=== PATIENT | female | born 1950 | race African-American/Black ===

== ENCOUNTER 2020-04-17 14:21 | Inpatient (IN) | payer MEDICARE, MEDICAID ==
[~2020-04-17] VITALS: Ht 162.6 cm; Wt 120.2 kg
[2020-04-17 16:19] LABS: BASOPHILS % 0.3 % (0.0-2.0); EOSINOPHILS % 1.3 % (0.0-5.0); HEMATOCRIT. 36.2 % (36.0-48.0); HEMOGLOBIN. 11.6 g/dL (12.0-16.0); MEAN CORPUSCULAR VOLUME 87.3 fL (81.0-99.0); MEAN PLATELET VOLUME 9.1 fl (7.4-10.4); MONOCYTES % 9.1 % (2.0-8.0); NEUTROPHILS % 74.3 % (40.0-76.0); PLATELET 195 x1000/uL (130-400); RED BLOOD CELL COUNT 4.15 mill/uL (4.2-5.4); RED CELL DISTRIBUTION WIDTH 16.2 % (11.6-14.6)
[2020-04-17 16:28] LABS: CHLORIDE 108 mEq/L (98-107)
[2020-04-17 16:31] LABS: INR 1.1; PROTHROMBIN TIME 11.1 sec (9.6-11.0)
[2020-04-17] MEDS ORDERED: ASPIRIN 325MG EC TABLET PO ONE (17:00)
[2020-04-17] MEDS ORDERED: FUROSEMIDE 20MG/2ML VIAL IVP ONE (17:00)
[2020-04-17] MEDS ORDERED: SODIUM CHLORIDE 0.9% 250 ML IV ONE (17:51)
[2020-04-17] MEDS ORDERED: ASPIRIN 300MG SUPP PR ONE (18:00)
[2020-04-17] MEDS ORDERED: ONDANSETRON HCL 4MG/2ML INJ IV PRN (19:30)
[2020-04-17] MEDS ORDERED: CLONIDINE 0.1MG TABLET PO PRN (19:30)
[2020-04-17] MEDS ORDERED: ACETAMINOPHEN 325MG TABLET PO PRN (19:30)
[2020-04-17] MEDS ORDERED: MORPHINE SULFATE 2 MG/ML CPJ (NOT FOR IM USE) IV PRN (19:30)
[2020-04-17 20:00] VITALS: BP 108/69
[2020-04-17] MEDS ORDERED: AZITHROMYCIN 500 MG in DEXT 5% WATER 250 ML IV SCH ×2 (20:00→23:00)
[2020-04-17] MEDS ORDERED: ENOXAPARIN 30MG/0.3ML SYR SUBCUT SCH (20:00)
[2020-04-17 21:30] VITALS: BP 108/69
[2020-04-17 21:45] VITALS: BP 108/69
[2020-04-17] MEDS: SODIUM CHLORIDE 0.45% 1,000 ML IV SCH (22:53)
[2020-04-18] VITALS (8 sets, daily range): BP systolic 91–114; BP diastolic 56–68
[2020-04-18] MEDS ORDERED: ALLO300T2 PO (04:47)
[2020-04-18] MEDS ORDERED: AMLO5TAB88 PO (04:47)
[2020-04-18] MEDS ORDERED: METF-414 PO (04:47)
[2020-04-18] MEDS ORDERED: GABA-533 PO (04:47)
[2020-04-18] MEDS ORDERED: ATOR40TA70 PO (04:47)
[2020-04-18] MEDS ORDERED: UMEC62.5 PO (04:47)
[2020-04-18] MEDS ORDERED: OMEP40CA12 PO (04:47)
[2020-04-18] MEDS ORDERED: LOSA100T32 PO (04:47)
[2020-04-18] MEDS ORDERED: DOCU250C87 PO (04:47)
[2020-04-18 06:26] LABS: BASOPHILS % 0.2 % (0.0-2.0); EOSINOPHILS % 1.4 % (0.0-5.0); HEMATOCRIT. 35.8 % (36.0-48.0); HEMOGLOBIN. 11.4 g/dL (12.0-16.0); LYMPHOCYTES % 16.7 % (20.0-50.0); MEAN CORPUSCULAR HEMOGLOBIN 28.2 pg (28.0-32.0); MEAN CORPUSCULAR VOLUME 88.9 fL (81.0-99.0); MEAN PLATELET VOLUME 8.7 fl (7.4-10.4); MONOCYTES % 10.7 % (2.0-8.0); PLATELET 181 x1000/uL (130-400); RED BLOOD CELL COUNT 4.03 mill/uL (4.2-5.4); RED CELL DISTRIBUTION WIDTH 16.5 % (11.6-14.6)
[2020-04-18 06:28] LABS: CHLORIDE 108 mEq/L (98-107)
[2020-04-18 06:37] LABS: LDL CHOLESTEROL 116 mg/dL (5-100)
[2020-04-18 06:38] LABS: HDL CHOLESTEROL 25 mg/dL (40-59)
[2020-04-18] MEDS: SODIUM CHLORIDE 0.45% 1,000 ML IV SCH (07:40)
[2020-04-18] MEDS ORDERED: LIDOCAINE HCL/PF 1% 2ML VIAL ONE (09:45)
[2020-04-18] MEDS ORDERED: FUROSEMIDE 40MG/4ML VIAL IVP SCH (12:45)
[2020-04-18] MEDS ORDERED: ENOXAPARIN 120MG/0.8ML SYR SUBCUT SCH (14:00)
[2020-04-18 14:09] LABS: BG BASE EXCESS -5.1 mmol/L (-2.0-2.0); BG CARBOXYHEMOGLOBIN 0.5 % (0.5-1.5); BG DEOXYHEMOGLOBIN 7.4 % (0.0-5.0); BG HCO3 ACT 24.5 mmol/L (22.0-26.0); BG METHEMOGLOBIN 0.2 % (0.0-1.5); BG OXYGEN SATURATION 92.5 % (92.0-98.5); BG OXYHEMOGLOBIN 91.9 % (94.0-97.0); BG PCO2 69.4 mmHg (35.0-45.0); BG PH 7.166 (7.350-7.450); BG PO2 80.8 mmHg (75.0-100.0); BG SAMPLE SITE RIGHT RADIAL; BG VENT MODE NASAL CANNULA
[2020-04-18] MEDS ORDERED: IOHEXOL-350 100 ML BOTTLE ONE (15:05)
[2020-04-18 17:33] LABS: PARTIAL THROMBOPLASTIN TIME 31.1 sec (23.4-31.0); PROTHROMBIN TIME 10.9 sec (9.6-11.0)
[2020-04-18] MEDS: FUROSEMIDE 40MG/4ML VIAL IVP SCH (17:47)
[2020-04-18 18:52] LABS: CLARITY URINE CLEAR (CLEAR); COLOR URINE YELLOW (YELLOW); KETONES URINE NEGATIVE (NEGATIVE); LEUKOCYTE ESTERASE URINE NEGATIVE (NEGATIVE); NITRITE URINE NEGATIVE (NEGATIVE); OCCULT BLOOD URINE NEGATIVE (NEGATIVE); PROTEIN URINE NEGATIVE (NEGATIVE); SPECIFIC GRAVITY URINE 1.022 (1.005-1.030); UROBILINOGEN URINE 0.2 E.U./dL (0.2-1.0)
[2020-04-18 19:38] LABS: *AMPHETAMINES SCREEN URINE NEGATIVE (NEGATIVE); *BARBITURATES SCREEN URINE NEGATIVE (NEGATIVE); *BENZODIAZEPINES SCREEN URINE NEGATIVE (NEGATIVE)
[2020-04-18 19:39] LABS: *COCAINE SCREEN URINE NEGATIVE (NEGATIVE); CANNABINOID URINE SCREEN NEGATIVE (NEGATIVE); METHADONE URINE SCREEN NEGATIVE (NEGATIVE); OPIATES URINE SCREEN NEGATIVE (NEGATIVE); PHENCYCLIDINE URINE SCREEN NEGATIVE (NEGATIVE)
[2020-04-18] MEDS: AMLODIPINE 2.5MG TABLET PO SCH (21:00)
[2020-04-18] MEDS ORDERED: AZITHROMYCIN 500MG in DEXTROSE 5% WATER 250ML IV SCH (21:00)
[2020-04-18] MEDS: ATORVASTATIN CALCIUM 20MG TABLET PO SCH (21:47)
[2020-04-19] VITALS (11 sets, daily range): BP systolic 103–132; BP diastolic 50–89
[2020-04-19 05:29] LABS: BASOPHILS % 0.4 % (0.0-2.0); EOSINOPHILS % 2.3 % (0.0-5.0); HEMOGLOBIN. 10.6 g/dL (12.0-16.0); MEAN CORPUSCULAR VOLUME 87.6 fL (81.0-99.0); MEAN PLATELET VOLUME 8.4 fl (7.4-10.4); MONOCYTES % 9.9 % (2.0-8.0); NEUTROPHILS % 66.4 % (40.0-76.0); PLATELET 181 x1000/uL (130-400); RED BLOOD CELL COUNT 3.77 mill/uL (4.2-5.4)
[2020-04-19] MEDS: FUROSEMIDE 40MG/4ML VIAL IVP SCH ×2 (07:57→17:00)
[2020-04-19] MEDS: AMLODIPINE 2.5MG TABLET PO SCH ×2 (07:59→22:56)
[2020-04-19] MEDS: ENOXAPARIN 120MG/0.8ML SYR SUBCUT SCH ×2 (11:23→22:57)
[2020-04-19] MEDS ORDERED: OMEPRAZOLE 20MG CAPSULE EXTENDED RELEASE PO SCH (14:30)
[2020-04-19] MEDS: PANTOPRAZOLE 40MG DR TABLET PO SCH (14:47)
[2020-04-19 15:10] LABS: BG BASE EXCESS 2.4 mmol/L (-2.0-2.0); BG CARBOXYHEMOGLOBIN 0.2 % (0.5-1.5); BG DEOXYHEMOGLOBIN 10.3 % (0.0-5.0); BG FRACTION INSPIRED OXYGEN 21; BG HCO3 ACT 29.5 mmol/L (22.0-26.0); BG OXYGEN SATURATION 89.7 % (92.0-98.5); BG OXYHEMOGLOBIN 89.5 % (94.0-97.0); BG PCO2 57.8 mmHg (35.0-45.0); BG PH 7.326 (7.350-7.450); BG PO2 60.8 mmHg (75.0-100.0); BG SAMPLE SITE RIGHT RADIAL; BG TOTAL HEMOGLOBIN 11.7 g/dL (12.0-18.0); BG VENT MODE ROOM AIR
[2020-04-19] MEDS: ATORVASTATIN CALCIUM 20MG TABLET PO SCH (22:54)
[2020-04-19] MEDS: AZITHROMYCIN 500 MG TABLET PO SCH (22:56)
[2020-04-20] VITALS (12 sets, daily range): BP systolic 100–155; BP diastolic 41–111
[2020-04-20] MEDS: PANTOPRAZOLE 40MG DR TABLET PO SCH (06:56)
[2020-04-20 07:05] LABS: BASOPHILS % 0.7 % (0.0-2.0); EOSINOPHILS % 1.8 % (0.0-5.0); HEMATOCRIT. 35.3 % (36.0-48.0); HEMOGLOBIN. 11.6 g/dL (12.0-16.0); LYMPHOCYTES % 20.2 % (20.0-50.0); MEAN CORPUSCULAR HEMOGLOBIN 28.4 pg (28.0-32.0); MEAN CORPUSCULAR VOLUME 86.4 fL (81.0-99.0); MEAN PLATELET VOLUME 8.2 fl (7.4-10.4); MONOCYTES % 10.6 % (2.0-8.0); NEUTROPHILS % 66.7 % (40.0-76.0); PLATELET 215 x1000/uL (130-400); RED BLOOD CELL COUNT 4.08 mill/uL (4.2-5.4); RED CELL DISTRIBUTION WIDTH 15.9 % (11.6-14.6)
[2020-04-20] MEDS: AMLODIPINE 2.5MG TABLET PO SCH ×2 (08:57→21:32)
[2020-04-20] MEDS: FUROSEMIDE 40MG/4ML VIAL IVP SCH ×2 (08:57→16:43)
[2020-04-20] MEDS: ENOXAPARIN 120MG/0.8ML SYR SUBCUT SCH (09:56)
[2020-04-20] MEDS: GABAPENTIN 300MG CAPSULE PO SCH ×2 (14:09→21:32)
[2020-04-20] MEDS: APIXABAN 5 MG TABLET PO SCH (16:43)
[2020-04-20] MEDS: AZITHROMYCIN 500 MG TABLET PO SCH (21:32)
[2020-04-20] MEDS: ATORVASTATIN CALCIUM 20MG TABLET PO SCH (21:32)
[2020-04-21] VITALS (13 sets, daily range): BP systolic 112–149; BP diastolic 58–82
[2020-04-21] MEDS: PANTOPRAZOLE 40MG DR TABLET PO SCH (05:50)
[2020-04-21] MEDS: GABAPENTIN 300MG CAPSULE PO SCH ×3 (05:50→22:46)
[2020-04-21 07:08] LABS: BASOPHILS % 0.4 % (0.0-2.0); EOSINOPHILS % 1.1 % (0.0-5.0); HEMATOCRIT. 36.7 % (36.0-48.0); HEMOGLOBIN. 11.8 g/dL (12.0-16.0); MEAN CORPUSCULAR HEMOGLOBIN 28.2 pg (28.0-32.0); MEAN CORPUSCULAR VOLUME 87.5 fL (81.0-99.0); MEAN PLATELET VOLUME 8.4 fl (7.4-10.4); MONOCYTES % 9.8 % (2.0-8.0); NEUTROPHILS % 73.7 % (40.0-76.0); PLATELET 229 x1000/uL (130-400); RED BLOOD CELL COUNT 4.19 mill/uL (4.2-5.4); RED CELL DISTRIBUTION WIDTH 16.1 % (11.6-14.6)
[2020-04-21] MEDS ORDERED: DIATR MEGLU/DIATRIZOATE SOLN 30ML PO SCH ×2 (09:15→15:22)
[2020-04-21] MEDS: FUROSEMIDE 40MG/4ML VIAL IVP SCH ×2 (09:41→19:58)
[2020-04-21] MEDS: APIXABAN 5 MG TABLET PO SCH ×2 (09:41→19:58)
[2020-04-21] MEDS: AMLODIPINE 2.5MG TABLET PO SCH ×2 (09:41→20:32)
[2020-04-21] MEDS: AZITHROMYCIN 500 MG TABLET PO SCH (20:31)
[2020-04-21] MEDS: ATORVASTATIN CALCIUM 20MG TABLET PO SCH (20:32)
[2020-04-22] VITALS (12 sets, daily range): BP systolic 103–158; BP diastolic 50–123
[2020-04-22] MEDS: GABAPENTIN 300MG CAPSULE PO SCH ×2 (06:11→13:07)
[2020-04-22] MEDS: PANTOPRAZOLE 40MG DR TABLET PO SCH (06:11)
[2020-04-22 06:57] LABS: BASOPHILS % 0.5 % (0.0-2.0); HEMATOCRIT. 34.7 % (36.0-48.0); HEMOGLOBIN. 11.1 g/dL (12.0-16.0); LYMPHOCYTES % 18.8 % (20.0-50.0); MEAN CORPUSCULAR HEMOGLOBIN 27.6 pg (28.0-32.0); MEAN CORPUSCULAR VOLUME 86.8 fL (81.0-99.0); MONOCYTES % 11.9 % (2.0-8.0); NEUTROPHILS % 65.8 % (40.0-76.0); PLATELET 229 x1000/uL (130-400); RED CELL DISTRIBUTION WIDTH 15.6 % (11.6-14.6)
[2020-04-22 07:35] LABS: CHLORIDE 98 mEq/L (98-107)
[2020-04-22 09:04] LABS: BG BASE EXCESS 5.8 mmol/L (-2.0-2.0); BG CARBOXYHEMOGLOBIN 0.7 % (0.5-1.5); BG DEOXYHEMOGLOBIN 9.8 % (0.0-5.0); BG FRACTION INSPIRED OXYGEN 21; BG HCO3 ACT 30.6 mmol/L (22.0-26.0); BG METHEMOGLOBIN 0.3 % (0.0-1.5); BG OXYGEN SATURATION 90.1 % (92.0-98.5); BG OXYHEMOGLOBIN 89.2 % (94.0-97.0); BG PCO2 45.5 mmHg (35.0-45.0); BG PH 7.446 (7.350-7.450); BG PO2 57.9 mmHg (75.0-100.0); BG SAMPLE SITE LEFT RADIAL; BG TOTAL HEMOGLOBIN 12.1 g/dL (12.0-18.0); BG VENT MODE ROOM AIR
[2020-04-22] MEDS: APIXABAN 5 MG TABLET PO SCH (09:23)
[2020-04-22] MEDS: FUROSEMIDE 40MG/4ML VIAL IVP SCH (09:23)
[2020-04-22] MEDS: AMLODIPINE 2.5MG TABLET PO SCH (09:24)
[2020-04-22] MEDS ORDERED: LEVOFLOXACIN 500MG PREMIX 100 ML IV SCH (12:00)
[2020-04-22] MEDS ORDERED: METRONIDAZOLE 500 MG PREMIX 100 ML IV SCH (13:00)
== END 2020-04-22 15:21 | disposition home health service (06) | DRG 134 ==
LOC: ER 14:21 → EDBEDREQ 16:23 → 7WST 19:02 → EDBEDREQTM 19:10 → EDBEDREQ 19:10 → ENRESERV 20:16 → 6WST 04-18 06:06 → 3WST 04-18 20:39
PROVIDERS: ADMIT Internal Medicine; ATTEND Internal Medicine
PROC: 5A09357 Assistance with Respiratory Ventilation, Less than 24 Consecutive Hours, Continuous Positive Airway Pressure (ICD-10-PCS; principal; 2020-04-18)
PROC: 5A09357 Assistance with Respiratory Ventilation, Less than 24 Consecutive Hours, Continuous Positive Airway Pressure (ICD-10-PCS; 2020-04-19)
PROC: 5A09457 Assistance with Respiratory Ventilation, 24-96 Consecutive Hours, Continuous Positive Airway Pressure (ICD-10-PCS; 2020-04-20)
DX: I26.99 Other pulmonary embolism without acute cor pulmonale (principal); E11.22 Type 2 diabetes mellitus with diabetic chronic kidney disease; E66.2 Morbid (severe) obesity with alveolar hypoventilation; I13.0 Hypertensive heart and chronic kidney disease with heart failure and stage 1 through stage 4 chronic kidney disease, or unspecified chronic kidney disease; E11.40 Type 2 diabetes mellitus with diabetic neuropathy, unspecified; E78.5 Hyperlipidemia, unspecified; F17.210 Nicotine dependence, cigarettes, uncomplicated; J44.9 Chronic obstructive pulmonary disease, unspecified; N17.9 Acute kidney failure, unspecified; N18.9 Chronic kidney disease, unspecified; I27.29 Other secondary pulmonary hypertension; J96.02 Acute respiratory failure with hypercapnia; K57.33 Diverticulitis of large intestine without perforation or abscess with bleeding; Z20.828 Contact with and (suspected) exposure to other viral communicable diseases; K64.9 Unspecified hemorrhoids; I50.43 Acute on chronic combined systolic (congestive) and diastolic (congestive) heart failure; W06.XXXA Fall from bed, initial encounter; Y93.89 Activity, other specified; Y92.89 Other specified places as the place of occurrence of the external cause; Y99.8 Other external cause status; Z87.19 Personal history of other diseases of the digestive system; Z88.0 Allergy status to penicillin; Z91.19 Patient's noncompliance with other medical treatment and regimen; Z68.42 Body mass index [BMI] 45.0-49.9, adult
CPT/HCPCS: 36415; 36600; 71045; 71275; 73620; 74176; 78582; 80048; 80053; 80061; 80305; 81003; 82375; 82805; 82962; 83735; 83880; 84484; 85025; 93005; 93306; 93970; 94618; 94660; 99291; A9558; J0456; J1650; J1940; J1956; J2270; J3490; J7050; J7060; Q9963; Q9967; U0003-CS

== ENCOUNTER 2022-09-15 14:13 | Inpatient (IN) | payer MEDICARE, MEDICAID ==
[~2022-09-15] VITALS: Ht 162.6 cm; Wt 119.0 kg
[~2022-09-15 14:13] MED LIST: ALLO300T2 PO; AMLO5TAB88 PO; ATOR40TA70 PO; GABA-533 PO; LOSA100T32 PO; METF-414 PO; OMEP40CA20 PO; UMEC62.5 PO; [UNRECOGNIZED DRUG - CODE] PO
[2022-09-15 18:31] LABS: BASOPHILS % 0.8 % (0.0-2.0); EOSINOPHILS % 4.9 % (0.0-5.0); HEMATOCRIT. 38.6 % (36.0-48.0); HEMOGLOBIN. 12.6 g/dL (12.0-16.0); LYMPHOCYTES % 26.2 % (20.0-50.0); MEAN CORPUSCULAR HEMOGLOBIN 30.4 pg (28.0-32.0); MEAN CORPUSCULAR VOLUME 92.8 fL (81.0-99.0); MEAN PLATELET VOLUME 8.4 fl (7.4-10.4); MONOCYTES % 10.2 % (2.0-8.0); NEUTROPHILS % 57.9 % (40.0-76.0); PLATELET 167 x1000/uL (130-400); RED BLOOD CELL COUNT 4.16 mill/uL (4.2-5.4); RED CELL DISTRIBUTION WIDTH 14.2 % (11.6-14.6)
[2022-09-15 18:55] LABS: CHLORIDE 106 mEq/L (98-107)
[2022-09-15] MEDS ORDERED: FUROSEMIDE 40MG/4ML VIAL IVP ONE (22:00)
[2022-09-16] MEDS ORDERED: FUROSEMIDE 40MG/4ML VIAL IVP NR (08:45)
[2022-09-16] MEDS ORDERED: DOCUSATE SODIUM 250MG CAPSULE PO PRN (09:45)
[2022-09-16 10:06] LABS: CHLORIDE 108 mEq/L (98-107)
[2022-09-16] MEDS: ASPIRIN 81MG TABLET PO SCH (11:08)
[2022-09-16] MEDS: CLOPIDOGREL 75MG TABLET PO SCH (11:08)
[2022-09-16] MEDS: SPIRONOLACTONE 25MG TABLET PO SCH (11:08)
[2022-09-16] MEDS: LOSARTAN POTASSIUM 100 MG TABLET PO SCH (11:09)
[2022-09-16 12:00] VITALS: BP 126/82
[2022-09-16] MEDS ORDERED: DEXTROSE 50% WATER 50ML SYRINGE IV PRN (14:45)
[2022-09-16] MEDS ORDERED: LACTULOSE 20G/30ML UDC PO PRN (14:45)
[2022-09-16] MEDS: QUETIAPINE FUMARATE 50MG TABLET PO SCH (15:23)
[2022-09-16] MEDS: ACETAMINOPHEN 325MG TABLET PO PRN (15:24)
[2022-09-16 16:00] VITALS: BP 131/65
[2022-09-16] MEDS: BLOOD SUGAR DIAGNOSTIC STRIP TEST SCH ×2 (17:26→20:53)
[2022-09-16] MEDS: INSULIN LISPRO 100 UNITS/ML SUBCUT SCH ×2 (17:27→20:54)
[2022-09-16 20:00] VITALS: BP 134/65
[2022-09-16] MEDS: IPRATROPIUM/ALBUTEROL 0.5-3(2.5)MG/3ML NEB HHN SCH (20:23)
[2022-09-16] MEDS: CARVEDILOL 6.25 MG TABLET PO SCH (20:47)
[2022-09-16] MEDS: ATORVASTATIN CALCIUM 40MG TABLET PO SCH (20:53)
[2022-09-16] MEDS: AZITHROMYCIN 500 MG TABLET PO SCH (20:53)
[2022-09-17] VITALS: BP 94/60
[2022-09-17] MEDS: IPRATROPIUM/ALBUTEROL 0.5-3(2.5)MG/3ML NEB HHN SCH ×4 (02:32→19:42)
[2022-09-17 04:00] VITALS: BP 141/81
[2022-09-17] MEDS: INSULIN LISPRO 100 UNITS/ML SUBCUT SCH ×4 (06:27→20:26)
[2022-09-17] MEDS: BLOOD SUGAR DIAGNOSTIC STRIP TEST SCH ×4 (06:27→20:25)
[2022-09-17] MEDS: OMEPRAZOLE 20MG CAPSULE EXTENDED RELEASE PO SCH (06:28)
[2022-09-17 08:00] VITALS: BP 114/55
[2022-09-17] MEDS: LOSARTAN POTASSIUM 100 MG TABLET PO SCH (09:43)
[2022-09-17] MEDS: ASPIRIN 81MG TABLET PO SCH (09:43)
[2022-09-17] MEDS: CLOPIDOGREL 75MG TABLET PO SCH (09:43)
[2022-09-17] MEDS: ACETAMINOPHEN 325MG TABLET PO PRN ×2 (09:43→17:29)
[2022-09-17] MEDS: SPIRONOLACTONE 25MG TABLET PO SCH (09:44)
[2022-09-17] MEDS: QUETIAPINE FUMARATE 50MG TABLET PO SCH (09:44)
[2022-09-17] MEDS: CARVEDILOL 6.25 MG TABLET PO SCH ×2 (09:45→20:52)
[2022-09-17] MEDS: FUROSEMIDE 40MG TABLET PO SCH ×2 (11:05→20:57)
[2022-09-17] MEDS: POTASSIUM CHLORIDE 20MEQ TABLET SR PO SCH (11:05)
[2022-09-17 12:00] VITALS: BP 128/66
[2022-09-17 16:00] VITALS: BP 130/60
[2022-09-17 20:00] VITALS: BP 114/57
[2022-09-17] MEDS: ATORVASTATIN CALCIUM 40MG TABLET PO SCH (20:57)
[2022-09-17] MEDS: AZITHROMYCIN 500 MG TABLET PO SCH (20:57)
[2022-09-18] VITALS: BP 139/61
[2022-09-18] MEDS: IPRATROPIUM/ALBUTEROL 0.5-3(2.5)MG/3ML NEB HHN SCH ×2 (01:55→08:44)
[2022-09-18] MEDS: ACETAMINOPHEN 325MG TABLET PO PRN (02:17)
[2022-09-18 04:00] VITALS: BP 128/68
[2022-09-18] MEDS: INSULIN LISPRO 100 UNITS/ML SUBCUT SCH ×2 (06:10→12:40)
[2022-09-18] MEDS: BLOOD SUGAR DIAGNOSTIC STRIP TEST SCH ×2 (06:10→12:48)
[2022-09-18] MEDS: OMEPRAZOLE 20MG CAPSULE EXTENDED RELEASE PO SCH (06:21)
[2022-09-18 07:41] VITALS: BP 149/73
[2022-09-18] MEDS: ASPIRIN 81MG TABLET PO SCH (09:17)
[2022-09-18] MEDS: QUETIAPINE FUMARATE 50MG TABLET PO SCH (09:18)
[2022-09-18] MEDS: LOSARTAN POTASSIUM 100 MG TABLET PO SCH (09:18)
[2022-09-18] MEDS: CLOPIDOGREL 75MG TABLET PO SCH (09:18)
[2022-09-18] MEDS: POTASSIUM CHLORIDE 20MEQ TABLET SR PO SCH (09:18)
[2022-09-18] MEDS: SPIRONOLACTONE 25MG TABLET PO SCH (09:19)
[2022-09-18] MEDS: CARVEDILOL 6.25 MG TABLET PO SCH (09:19)
[2022-09-18] MEDS: FUROSEMIDE 40MG TABLET PO SCH (09:19)
[2022-09-18 11:53] VITALS: BP 145/71
[2022-09-18 13:06] LABS: *AMPHETAMINES SCREEN URINE NEGATIVE (NEGATIVE); *BARBITURATES SCREEN URINE NEGATIVE (NEGATIVE); *BENZODIAZEPINES SCREEN URINE NEGATIVE (NEGATIVE); *COCAINE SCREEN URINE NEGATIVE (NEGATIVE); CANNABINOID URINE SCREEN NEGATIVE (NEGATIVE); METHADONE URINE SCREEN NEGATIVE (NEGATIVE); OPIATES URINE SCREEN NEGATIVE (NEGATIVE); PHENCYCLIDINE URINE SCREEN NEGATIVE (NEGATIVE)
== END 2022-09-18 12:20 | disposition home health service (06) | DRG 194 ==
LOC: ER 14:13 → MICUSO 21:52 → 8WST 09-16 12:21
PROVIDERS: ADMIT Internal Medicine; ATTEND Internal Medicine
DX: I13.0 Hypertensive heart and chronic kidney disease with heart failure and stage 1 through stage 4 chronic kidney disease, or unspecified chronic kidney disease (principal); J96.20 Acute and chronic respiratory failure, unspecified whether with hypoxia or hypercapnia; I31.39 Other pericardial effusion (noninflammatory); I50.33 Acute on chronic diastolic (congestive) heart failure; E11.22 Type 2 diabetes mellitus with diabetic chronic kidney disease; E78.5 Hyperlipidemia, unspecified; I25.10 Atherosclerotic heart disease of native coronary artery without angina pectoris; J44.1 Chronic obstructive pulmonary disease with (acute) exacerbation; Z20.822 Contact with and (suspected) exposure to COVID-19; E66.01 Morbid (severe) obesity due to excess calories; M21.371 Foot drop, right foot; G47.33 Obstructive sleep apnea (adult) (pediatric); M10.9 Gout, unspecified; I48.91 Unspecified atrial fibrillation; F32.A Depression, unspecified; N18.9 Chronic kidney disease, unspecified; E87.5 Hyperkalemia; I25.82 Chronic total occlusion of coronary artery; Z91.199 Patient's noncompliance with other medical treatment and regimen due to unspecified reason; Z88.0 Allergy status to penicillin; Z68.42 Body mass index [BMI] 45.0-49.9, adult; Z95.1 Presence of aortocoronary bypass graft; Z79.899 Other long term (current) drug therapy; Z79.82 Long term (current) use of aspirin; Z79.84 Long term (current) use of oral hypoglycemic drugs; Z86.711 Personal history of pulmonary embolism; Z87.891 Personal history of nicotine dependence; Z82.49 Family history of ischemic heart disease and other diseases of the circulatory system
CPT/HCPCS: 36415; 71045; 80048; 80053; 80061; 80305; 82962; 83036; 83880; 84484; 85025; 87426; 93005; 93306; 93970; 97161; 99285; J1815; J1940

== ENCOUNTER 2024-08-14 09:32 | Emergency (ER) | payer MEDICARE, MEDICAID ==
[~2024-08-14] VITALS: Ht 162.6 cm; Wt 100.0 kg
[~2024-08-14 09:32] MED LIST changes: -ALLO300T2 PO; -AMLO5TAB88 PO; -GABA-533 PO; -LOSA100T32 PO; +LOSA100T33 PO; -OMEP40CA20 PO; -UMEC62.5 PO
[2024-08-14 09:36] VITALS: O2SAT 96
[2024-08-14] MEDS: HYDROCODONE/ACETAMINOPHEN 5/325MG TABLET PO STA (10:09)
[2024-08-14 10:31] LABS: BASOPHILS % 0.7 % (0.0-2.0); EOSINOPHILS % 3.5 % (0.0-5.0); HEMATOCRIT. 28.8 % (36.0-48.0); HEMOGLOBIN. 9.6 g/dL (12.0-16.0); LYMPHOCYTES % 18.9 % (20.0-50.0); MEAN CORPUSCULAR HEMOGLOBIN 31.6 pg (28.0-32.0); MEAN CORPUSCULAR HGB CONC 33.2 g/dL (31.0-37.0); MEAN PLATELET VOLUME 8.3 fl (7.4-10.4); MONOCYTES % 8.3 % (2.0-8.0); NEUTROPHILS % 68.6 % (40.0-76.0); PLATELET 223 x1000/uL (130-400); RED BLOOD CELL COUNT 3.03 mill/uL (4.2-5.4); RED CELL DISTRIBUTION WIDTH 15.4 % (11.6-14.6); WHITE BLOOD COUNT 5.7 x1000/uL (4.5-11.0)
[2024-08-14 10:46] LABS: CHLORIDE 107 mEq/L (98-107); POTASSIUM 5.1 mEq/L (3.5-5.1); SODIUM 135 mEq/L (136-145)
[2024-08-14 10:47] LABS: CALCIUM 9.1 mg/dL (8.7-10.4); CARBON DIOXIDE 20 mEq/L (21-32)
[2024-08-14 10:52] LABS: CREATININE 1.2 mg/dL (0.6-1.0); GLUCOSE 108 mg/dL (70-105); UREA NITROGEN BLOOD 21 mg/dL (9-23)
[2024-08-14 10:53] LABS: TROPONIN I HIGH SENSITIVITY 19 ng/L (3.0-34)
[2024-08-14 11:44] LABS: PROTHROMBIN TIME 11.2 sec (9.6-11.0)
[2024-08-14 13:31] VITALS: BP 128/60; PULSE 65; RESP 16; TEMP 36.61404; O2SAT 96
== END 2024-08-14 13:34 | disposition home or self-care (01) ==
LOC: ER 09:32 → EDBEDREQ 10:58 → CANBEDREQ 12:15 → ER 13:34
DX: M79.604 Pain in right leg (principal); I11.0 Hypertensive heart disease with heart failure; I25.10 Atherosclerotic heart disease of native coronary artery without angina pectoris; J44.9 Chronic obstructive pulmonary disease, unspecified; I50.9 Heart failure, unspecified; I25.2 Old myocardial infarction; E87.5 Hyperkalemia; Z86.718 Personal history of other venous thrombosis and embolism; Z79.84 Long term (current) use of oral hypoglycemic drugs; Z88.0 Allergy status to penicillin; Z95.1 Presence of aortocoronary bypass graft
CPT/HCPCS: 80048; 85025; 85610; 84484; 36415; 93922; 71045; 93005; 99285; Z7610 ×4